=== PATIENT | male | born 1980 | race Two or more races ===

== ENCOUNTER 2019-02-27 12:37 | Emergency (ER) | payer MEDICAID ==
[~2019-02-27] VITALS: Ht 177.8 cm; Wt 102.3 kg
[2019-02-27 12:45] VITALS: BP 123/80
== END 2019-02-27 13:45 | disposition home or self-care (01) ==
LOC: ER 12:44
DX: S81.812D Laceration without foreign body, left lower leg, subsequent encounter (principal); X58.XXXD Exposure to other specified factors, subsequent encounter

== ENCOUNTER 2020-02-18 04:56 | Emergency (ER) | payer MEDICAID ==
[~2020-02-18] VITALS: Ht 177.8 cm; Wt 108.9 kg
[2020-02-18 05:14] VITALS: BP 137/79
== END 2020-02-18 07:01 | disposition home or self-care (01) ==
LOC: ER 04:56
DX: S83.91XA Sprain of unspecified site of right knee, initial encounter (principal); X58.XXXA Exposure to other specified factors, initial encounter; Y93.89 Activity, other specified; Y92.89 Other specified places as the place of occurrence of the external cause; Y99.8 Other external cause status
CPT/HCPCS: 73562

== ENCOUNTER 2020-02-23 16:24 | Emergency (ER) | payer MEDICAID ==
[~2020-02-23] VITALS: Ht 177.8 cm; Wt 108.9 kg
[2020-02-23 16:44] VITALS: BP 144/69
[2020-02-23] MEDS ORDERED: methylPREDNISolone SOD SUCC 125 MG/2 ML VL IM ONE (17:30)
== END 2020-02-23 17:52 | disposition home or self-care (01) ==
LOC: ER 16:24
DX: S83.91XA Sprain of unspecified site of right knee, initial encounter (principal); X58.XXXA Exposure to other specified factors, initial encounter; Y93.89 Activity, other specified; Y92.89 Other specified places as the place of occurrence of the external cause; Y99.8 Other external cause status
CPT/HCPCS: 96372; 99283; J2930